=== PATIENT | female | born 1990 | race African-American/Black ===

== ENCOUNTER 2021-06-09 12:14 | Emergency (ER) | payer MEDICAID ==
[~2021-06-09] VITALS: Ht 182.9 cm; Wt 61.9 kg
--- NOTE | 2021-06-09 12:50 | NUR ---
PT CAME IN [place] CHEST PAIN THAT SHE DESCRIBES HAS A "KNOT IN MY THROAT AND THE PAIN RADIATES TO MY BACK". PT SAYS THIS HAS BEEN GOING ON FOR ABOUT A MONTH. PT ALSO A RASH ON HER LEFT HAND WELL AND BOTH OF HER LEGS WHICH ALSO HAS BEEN GOING ON FOR ABOUT A MONTH. PT RESTING IN [facility]. CONNECTED TO MONITORING EQUIPMENT
[2021-06-09] MEDS ORDERED: DEXAMETHASONE 4 MG TABLET PO ONE (13:00)
[2021-06-09] MEDS ORDERED: TRIAMCINOLONE CRM 0.1%, 15GM TP ONE (13:00)
[2021-06-09] MEDS ORDERED: DEXAMETHASONE 4 MG TABLET ONE (13:12)
[2021-06-09 13:14] VITALS: BP 106/76
--- NOTE | 2021-06-09 13:19 | NUR ---
PT MEDICATED PER MAR
[2021-06-09 13:21] LABS: BASOPHILS % (AUTO) 1 % (0-1); EOSINOPHILS % (AUTO) 1 % (1-7); LYMPHOCYTES % (AUTO) 44 % (22-44); MEAN CORPUSCULAR HEMOGLOBIN 28.5 pg (27.0-34.8); MONOCYTES % (AUTO) 15 % (2-9); NEUTROPHILS % (AUTO) 40 % (42-75); PLATELET COUNT 362 x10^3/uL (130-400); RED BLOOD COUNT 4.62 x10^6/uL (3.82-5.3); RED CELL DISTRIBUTION WIDTH 14.5 % (9.6-15.2)
[2021-06-09 13:25] LABS: ALANINE AMINOTRANSFERASE 24 U/L (12-78); ALBUMIN 3.6 g/dL (3.4-5.0); ANION GAP 4 mmol/L (5-15); CALCIUM 9.1 mg/dL (8.5-10.1); CHLORIDE 104 mmol/L (98-107); CREATININE 0.89 mg/dL (0.55-1.02)
[2021-06-09 13:30] LABS: ALKALINE PHOSPHATASE 104 U/L (45-117); BILIRUBIN,TOTAL 0.4 mg/dL (0.2-1.0); TOTAL PROTEIN 8.1 g/dL (6.4-8.2)
== END 2021-06-09 15:09 | disposition home or self-care (01) ==
LOC: ED 14:45
DX: M94.0 Chondrocostal junction syndrome [Tietze] (principal); R07.89 Other chest pain; L40.9 Psoriasis, unspecified; F17.210 Nicotine dependence, cigarettes, uncomplicated
CPT/HCPCS: 36415; 80053; 84703; 85025; 86592; 93005; 99284